=== PATIENT | female | born 2000 | race Two or more races ===

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

== ENCOUNTER 2023-10-25 06:11 | Emergency (ER) | payer OTHER ==
[2023-10-25 06:21] VITALS: BP 112/72; PULSE 77; RESP 20; TEMP 99; BMI 20.7
[2023-10-25] MEDS ORDERED: KETOROLAC TROMETHAMINE 30 MG/1 ML VIAL ONE (08:08)
[2023-10-25] MEDS ORDERED: DEXAMETHASONE SOD PHOSPHATE 10 MG/1 ML VIAL ONE (08:08)
[2023-10-25] MEDS: KETOROLAC TROMETHAMINE 30 MG/1 ML VIAL IM ONE (08:14)
[2023-10-25] MEDS: DEXAMETHASONE SOD PHOSPHATE 10 MG/1 ML VIAL IM ONE (08:14)
== END 2023-10-25 09:04 | disposition home or self-care (01) ==
LOC: JER 06:11
PROC: 3E0233Z Introduction of Anti-inflammatory into Muscle, Percutaneous Approach (ICD-10-PCS; principal; 2023-10-25)
PROC: 3E023GC Introduction of Other Therapeutic Substance into Muscle, Percutaneous Approach (ICD-10-PCS; 2023-10-25)
DX: J02.8 Acute pharyngitis due to other specified organisms (principal); R53.1 Weakness; R53.83 Other fatigue; R50.9 Fever, unspecified; H93.8X9 Other specified disorders of ear, unspecified ear; R11.10 Vomiting, unspecified; B97.89 Other viral agents as the cause of diseases classified elsewhere; Z20.822 Contact with and (suspected) exposure to COVID-19
CPT/HCPCS: 0241U-QW; 87651; 99284-25; J1100

== ENCOUNTER 2023-10-26 23:17 | Emergency (ER) | payer OTHER ==
[2023-10-26 23:22] VITALS: BP 105/72; PULSE 71; RESP 18; TEMP 98.6; BMI 19.5
[2023-10-27] MEDS ORDERED: PENICILLIN G BENZATHINE 1,200,000 UNIT/2 ML PFS IM ONE (01:19)
[2023-10-27] MEDS: PENICILLIN G BENZATHINE 1,200,000 UNIT/2 ML PFS IM ONE (01:23)
== END 2023-10-27 01:41 | disposition home or self-care (01) ==
LOC: JER 23:17
DX: J02.9 Acute pharyngitis, unspecified (principal); H92.01 Otalgia, right ear
CPT/HCPCS: 87651; 99284-25